=== PATIENT | male | born 1995 | race Caucasian/White ===

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

== ENCOUNTER 2017-10-24 18:31 | Emergency (ER) | payer BC ==
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
--- NOTE | 2017-10-24 20:12 | CPEKG ---
Test Reason : OPEN Blood Pressure : / mmHG Vent. Rate : 059 BPM Atrial Rate : 059 BPM P-R Int : 161 ms QRS Dur : 100 ms QT Int : 388 ms P-R-T Axes : -03 018 034 degrees QTc Int : [address] elev, probable normal early repol pattern Confirmed by Srikanth Singletary ([id number]) on 10/24/2017 8:12:24 PM Referred By: Confirmed By:Srikanth Singletary
[2017-10-24 20:23] VITALS: BP 120/80
== END 2017-10-24 20:21 | disposition home or self-care (01) ==
DX: R07.9 Chest pain, unspecified (principal); Z86.79 Personal history of other diseases of the circulatory system; V18.0XXA Pedal cycle driver injured in noncollision transport accident in nontraffic accident, initial encounter; Y92.9 Unspecified place or not applicable
CPT/HCPCS: 82435-PO; 82565-PO; 82947-PO; 84132-PO; 84295-PO; 84484-PO; 84520-PO; 85014-PO